=== PATIENT | female | born 1985 | race Caucasian/White ===

== ENCOUNTER → 2016-07-10 | Outpatient (CLI) | payer BC | END | disposition home or self-care (01) | LOC: MW.CHFP 10:33 | PROVIDERS: ATTEND Physician Assistant | DX: Z68.41 Body mass index [BMI] 40.0-44.9, adult (principal) | CPT/HCPCS: 36415; 84439; 84443; 84480 ==

== ENCOUNTER 2017-06-09 19:01 | Emergency (ER) | payer BC ==
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
[2017-06-10 00:54] VITALS: BP 127/84
== END 2017-06-09 20:06 | disposition home or self-care (01) ==
LOC: MW.ED 19:01
DX: J02.9 Acute pharyngitis, unspecified (principal); H93.8X3 Other specified disorders of ear, bilateral; M26.629 Arthralgia of temporomandibular joint, unspecified side; F32.9 Major depressive disorder, single episode, unspecified; Z79.899 Other long term (current) drug therapy; Z91.018 Allergy to other foods
CPT/HCPCS: 99282; 99283